=== PATIENT | male | born 1960 | race Two or more races ===

== ENCOUNTER 2019-08-04 07:55 | Day surgery (SDC) | payer OTHER ==
[2019-08-04] VITALS (10 sets, daily range): BP systolic 102–119; BP diastolic 66–75
[~2019-08-04] VITALS: Ht 175.3 cm; Wt 93.9 kg
[2019-08-04] MEDS ORDERED: AMLO10TA4 PO (08:36)
[2019-08-04] MEDS ORDERED: METO50TA7 PO (08:36)
[2019-08-04] MEDS ORDERED: DEXL60CA3 PO (08:36)
[2019-08-04] MEDS ORDERED: ASPI-605 PO (08:36)
[2019-08-04] MEDS ORDERED: OLME40TA12 PO (08:36)
[2019-08-04] MEDS ORDERED: BUPIVACAINE MPF 0.5% W/EPI INJ 30 ML VIAL ONE (10:54)
[2019-08-04] MEDS ORDERED: MORPHINE SULFATE/PF 10 MG/10ML (1MG/ML) AMPUL ONE (10:54)
[2019-08-04] MEDS ORDERED: EPINEPHRINE (1:1000) 1 MG/ML AMPUL ONE (10:55)
[2019-08-04] MEDS ORDERED: MIDAZOLAM HCL 2 MG/2ML VIAL ONE (11:03)
[2019-08-04] MEDS ORDERED: DESFLURANE 240 ML BOTTLE IH ONE (11:45)
[2019-08-04] MEDS ORDERED: SEVOFLURANE 250 ML BOTTLE IH ONE (11:45)
[2019-08-04] MEDS ORDERED: HYDROMORPHONE INJ 2 MG/ML DISP.SYRIN ONE (12:23)
[2019-08-04] MEDS ORDERED: FENTANYL PF 100MCG/2ML AMPUL ONE (12:43)
[2019-08-04] MEDS ORDERED: HYDROCODONE/APAP 10/325MG 1 EA TABLET PO ONE (13:00)
== END 2019-08-04 16:00 | disposition home or self-care (01) ==
LOC: DS 07:55 → UNDOADMIN 08:02 → MEDSG2 08:02 → DS 16:00 → UNDODISIN 17:20
PROVIDERS: ATTEND Orthopaedic Surgery
DX: M23.8X1 Other internal derangements of right knee (principal); M94.261 Chondromalacia, right knee; M65.861 Other synovitis and tenosynovitis, right lower leg; I10 Essential (primary) hypertension; D64.9 Anemia, unspecified; E11.9 Type 2 diabetes mellitus without complications; I11.0 Hypertensive heart disease with heart failure; I50.9 Heart failure, unspecified; I25.2 Old myocardial infarction; E78.5 Hyperlipidemia, unspecified; Z79.899 Other long term (current) drug therapy; M25.561 Pain in right knee
CPT/HCPCS: 29881; 87081; 88304; 88311; A4217; A6253; J0171; J0690; J1100; J1170; J2250; J2274; J3010; J3490 ×2; G0378